=== PATIENT | female | born 1950 | race Caucasian/White ===

== ENCOUNTER 2018-05-09 10:17 | Outpatient (CLI) | payer MEDICARE, SELFPAY ==
--- NOTE | 2018-05-09 10:15 | DI.RAD_ITS ---
SYMPTOM/DIAGNOSIS: LEFT HIP PAIN PELVIS AND LEFT HIP: No prior comparison exams. There is severe narrowing of the left hip joint space. There is prominent periarticular spurring. Subchondral cysts are seen greatest in the superior acetabulum. There is slight flattening of the left femoral head. The right hip joint space appears well maintained. There is spurring from the right acetabulum superiorly IMPRESSION: Severe degenerative changes of the left hip. Mild degenerative changes of the right hip
== END 2018-05-09 10:37 ==
PROVIDERS: Visit Provider Student in an Organized Health Care Education/Training Program
DX: M25.552 Pain in left hip (principal); M16.12 Unilateral primary osteoarthritis, left hip
CPT/HCPCS: 99202; 73502